=== PATIENT | female | born 1975 | race African-American/Black ===

== ENCOUNTER 2018-07-18 11:11 | Observation (INO) | payer BC ==
[2018-07-18 12:17] LABS: Hemoglobin 13.5 g/dL (12.0-16.0); Mean Corpuscular HGB CONC 33.7 g/dL (32.0-36.0); Mean Corpuscular Hemoglobin 31.3 pg (27.0-31.0); Platelet Count 132 thou/uL (130-400); RBC Distribution Width 11.8 % (11.5-14.5); Red Blood Cell (RBC) Count 4.31 mill/uL (4.20-5.40); White Blood Cell (WBC) Count 7.7 thou/uL (4.8-10.8)
[2018-07-18] MEDS ORDERED: Acetaminophen 500 MG TAB ONE (12:18)
[2018-07-18 12:27] LABS: #Basophils 0.1 thou/uL (0.0-0.2); #Eosinphils 0.2 thou/uL (0.0-0.7); #Monocytes 0.7 thou/uL (0.11-0.59); #Neutrophils 4.6 thou/uL (1.40-6.50); %Basophils 1.3 % (0.0-1.0); %Eosinophils 2.8 % (0.0-10.0); %Lymphocytes 26.2 % (21.0-51.0); %Monocytes 9.6 % (0.0-10.0); %Neutrophils 60.1 % (42.0-75.0); Large Platelets SLIGHT; MDiff Complete? YES; Platelet Morphology Comment Appears Adequate; RBC Morphology Normal
[2018-07-18 12:31] LABS: ALT (SGPT) 13 U/L (8-55); AST (SGOT) 19 U/L (5-34); Albumin 4.6 g/dL (3.5-5.0); Alkaline Phosphatase 73 U/L (40-150); Anion Gap 14 mmol/L (10-20); BUN (Urea Nitrogen) 12 mg/dL (7.0-18.7); Bilirubin, Total 0.9 mg/dL (0.2-1.2); Calc. Creatinine Clearance 0 mL/min (70-130); Calcium 10.2 mg/dL (7.8-10.44); Carbon Dioxide 24 mmol/L (22-29); Chloride 104 mmol/L (98-107); Estimated GFR-MDRD 77; Globulin 3.7 g/dL (2.4-3.5); Glucose 79 mg/dL (70-105); Lipase 20 U/L (8-78); Potassium 3.9 mmol/L (3.5-5.1); Protein, Total 8.3 g/dL (6.0-8.3); Sodium 138 mmol/L (136-145)
--- NOTE | 2018-07-18 12:39 | RAD ---
PORTABLE CHEST ONE VIEW: Date: 07-18-18 Time: 12:27 p.m. History: Chest pain FINDINGS: Comparison is made with exam of 11-20-17. The heart size is normal. The lungs are expanded without focal areas of consolidation, pneumothoraces or pleural effusions. IMPRESSION: No radiographic evidence of acute cardiopulmonary process. POS: [facility]
[2018-07-18] MEDS ORDERED: Nitroglycerin 2% Ointment 1 INCH/1 GM Packet ONE (13:06)
[2018-07-18] MEDS ORDERED: diphenhydrAMINE 50 MG/ML VIAL ONE (13:56)
[2018-07-18] MEDS ORDERED: Ondansetron PF 4 MG/2 ML Vial ONE (13:56)
[2018-07-18] MEDS ORDERED: Metoclopramide HCl 10 MG/2 ML VIAL ONE (13:56)
[2018-07-18 15:47] VITALS: BMI 26.2
--- NOTE | 2018-07-18 16:48 | PDOC.FPRHP ---
- History of Present Illness Chief Complaint: Chest pain History of Present Illness: 43 yo F with PMH SLE was transfer from [facility] [place] for chest pain rule out. She reports intermittent chest pain and "twinge" feeling on L side of chest. Episodes last a few seconds and have increased in frequency today. Radiates to L arm. Associated with N/V, chills. No numbness/tingling. No exacerbating factors. Alleviated by nitro. Movement doesn't affect pain. Has never had this pain before. Pain 6-7/10 at worst, no pain now. Has a mild headache that improved some with meds given in ED. Also reports lower abdominal pain/pressure x2 days associated with urinary frequency. No dysuria. Had chest pain 4 years ago with negative stress test. ED Course: Metoclopramide, benadryl, ondansetron, nitro, 1L, tylenol - Allergies/Adverse Reactions Allergies Allergy/AdvReac Type Severity Reaction Status Date / Time aspirin Allergy Verified 12/25/12 12:33 NSAIDS (Non-Steroidal Allergy Verified 07/18/18 15:52 Anti-Inflamma - Home Medications Medication Instructions Recorded Confirmed Type Nitrofurantoin Monohyd/M-Cryst 100 mg PO BID #10 cap 07/19/18 Rx [Macrobid] - History PMHx: SLE, asthma, migraines PSHx: hysterectomy 2010 FHx: CAD Social: No tobacco, alcohol, drug use - Review of Systems General: denies: fever/chills ENT: denies: nasal congestion Respiratory: denies: cough, shortness of breath Cardiovascular: reports: chest pain. denies: palpitation, edema Gastrointestinal: reports: nausea, vomiting, abdominal pain. denies: diarrhea Genitourinary: denies: incontinence, dysuria Skin: denies: rashes Musculoskeletal: denies: stiffness, swelling Neurological: denies: numbness, weakness - Vital signs BP: 137/85 HR: 101 RR: 24 Tmax: 99.1 Pox: 94% on RA Wt: 63 kg - Physical Exam Constitutional: NAD, awake, alert and oriented HEENT: normocephalic and atraumatic Chest: no-tender to palpation Heart: RRR, normal S1/S2, no murmurs/rubs/gallops, pulses present, no edema Lungs: CTAB, no respiratory distress, no rales/rhonchi, no wheezing Abdomen: soft, bowel sounds present, other (mid abdominal and suprapubic tenderness to palpation) Neurological: no focal deficit Skin: no rash/lesions, good turgor FMR H&P: Results - Labs Result Diagrams: 07/18/18 12:10 07/18/18 12:10 Lab results: WBC 7.7 thou/uL (4.8-10.8) 07/18/18 12:10 Hgb 13.5 g/dL (12.0-16.0) 07/18/18 12:10 Hct 40.1 % (36.0-47.0) 07/18/18 12:10 MCV 93.0 fL (78.0-98.0) 07/18/18 12:10 Plt Count 132 thou/uL (130-400) 07/18/18 12:10 Neutrophils % 60.1 % (42.0-75.0) 07/18/18 12:10 Sodium 138 mmol/L (136-145) 07/18/18 12:10 Potassium 3.9 mmol/L (3.5-5.1) 07/18/18 12:10 Chloride 104 mmol/L (98-107) 07/18/18 12:10 Carbon Dioxide 24 mmol/L (22-29) 07/18/18 12:10 BUN 12 mg/dL (7.0-18.7) 07/18/18 12:10 Creatinine 0.96 mg/dL (0.6-1.1) 07/18/18 12:10 Glucose 79 mg/dL (70-105) 07/18/18 12:10 Calcium 10.2 mg/dL (7.8-10.44) 07/18/18 12:10 Total Bilirubin 0.9 mg/dL (0.2-1.2) 07/18/18 12:10 AST 19 U/L (5-34) 07/18/18 12:10 ALT 13 U/L (8-55) 07/18/18 12:10 Alkaline Phosphatase 73 U/L (40-150) 07/18/18 12:10 Serum Total Protein 8.3 g/dL (6.0-8.3) 07/18/18 12:10 Albumin 4.6 g/dL (3.5-5.0) 07/18/18 12:10 Lipase 20 U/L (8-78) 07/18/18 12:10 FMR H&P: A/P - Problem List (1) Chest pain Current Visit: Yes Status: Acute Code(s): R07.9 - CHEST PAIN, UNSPECIFIED (2) Urinary frequency Current Visit: Yes Status: Acute Code(s): R35.0 - FREQUENCY OF MICTURITION (3) SLE (systemic lupus erythematosus related syndrome) Current Visit: Yes Status: Chronic Code(s): M32.9 - SYSTEMIC LUPUS ERYTHEMATOSUS, UNSPECIFIED - Plan ACS rule out for typical chest pain - Heart score 3 - pending TSH, lipids - 1st troponin negative, continue to trend - NPO @ midnight and plan for stress test in am Urinary frequency - UA not found in previous ED workup - pending UA and will treat as necessary SLE - not on any home meds as unable to tolerate plaquenil side effects Ppx: SCDs, yonas 0 Diet: HH, NPO @ midnight Dispo: admit to telemetry for observation FMR H&P: Upper Level - Pertinent history 43 yo F with Hx of SLE here with complaint of left sided chest pain with radiation to the L shoulder. Pain started yesterday and was intermittent in nature. Pain was not associated with activity. She did note associated SOB. She notes increasing frequency and severity of pain over the past 24 hours. Apprx 4 years ago she had similar pain with a negative stress. In the outside ED initial trop was negative and EKG shows q waves in inferior leads, however these are unchanged from previous EKG. Nitro paste was placed in ED with resolution of CP. Patient also complains of 1-2 days of lower abdominal pain with increased urinary frequency and associated n/v. ROS - see recruiting intern note for full ROS and PE General Denies fever chills CV complains of left sided CP that radiates to L arm Resp complains of SOB associated with CP GI complains of n/v complains of increased frequency and lower abdominal pain Neuro denies numbness, weakness, slurred speech, or LOC - Pertinent findings PE General A&O x3, no acute distress HEENT NCAT CV RRR, no murmur. Chest non TTP Resp CTA b/l GI Suprapubic tenderness, otherwise non tender, normal BS Extremities no edema Neuro normal strength and sensation - Plan Date/Time: 07/18/18 3856 I, Ceasar Funk DO, have evaluated this patient and agree with findings/plan as outlined by recruiting intern resident. Pertinent changes/additions are listed here. 1. Typical chest pain - initial trop negative, trend x3 - monitor on tele obs - Nitro prn - NPO at midnight, stress in am 2. SLE - at baseline. Pt is not on any meds 3. UTI, suspected - UA pending. If indicated will culture and treat with abx PPx SCD Diet HH, NPO at midnight Code Full Dispo: Pt is stable and doing well. Obs over night and likely dc in 1-2 days pending stress results. Addendum - Attending - Attending Attestation Date/Time: 07/19/18 0682 I personally evaluated the patient and discussed the management with Dr. Funk and Sina on day of admission. I agree with and repeated the History, Examination, Assessment and Plan documented above with any addition or exceptions noted below.
[2018-07-18] MEDS ORDERED: Nitroglycerin 0.4 MG TAB (25 Tab Bottle) PO PRN (16:52)
[2018-07-18] MEDS ORDERED: Ondansetron ODT 4 MG TAB PO PRN (16:52)
[2018-07-18 17:11] LABS: Troponin I Less than 0.010 ng/mL (< 0.028)
[2018-07-18] MEDS: Acetaminophen 325 MG TAB PO PRN (18:41)
[2018-07-18 19:21] LABS: Troponin I Less than 0.010 ng/mL (< 0.028)
[2018-07-18 21:16] LABS: Bilirubin Negative (Negative); Blood, Urine Trace (Negative); Clarity CLEAR (Clear); Glucose, Urine (Dipstick) Negative (Negative); Leukocyte Moderate (Negative); Nitrite Negative (Negative); Protein, Urine (Dipstick) Negative (Neg-Trace); Specific Gravity, Urine 1.018 (1.002-1.036)
[2018-07-18 21:17] LABS: Bacteria/HPF None Seen HPF (None Seen); Hyaline Casts/LPF 0-3 HYALINE CAST LPF (0-3 Hyaline); Squamous Epithelial 0-3 HPF (0-3)
[2018-07-18 21:18] LABS: Urine Culture Reflex Yes Yes
[2018-07-19 05:40] LABS: Cardiac Risk 3.5 (Less than 4.5)
--- NOTE | 2018-07-19 07:05 | PDOC.FM ---
- Subjective Subjective: Seen at bedside this morning resting comfortably. She continues to have periodic dull chest pain. Denies cough or SOB. No new symptoms. - Objective MAR Reviewed: Yes Vital Signs & Weight: Vital Signs (12 hours) Temp Pulse Resp BP Pulse Ox 07/19/18 03:33 99.1 F 64 17 97/56 L 98 07/18/18 19:45 98.7 F 82 16 91/54 L 96 Weight Weight 63.049 kg I&O: 07/18/18 07/19/18 07/20/18 06:59 06:59 06:59 Intake Total 780 Output Total 600 Balance 180 Result Diagrams: 07/18/18 12:10 07/18/18 12:10 Phys Exam - Physical Examination Constitutional: NAD HEENT: moist MMs Neck: no JVD Respiratory: clear to auscultation bilateral Cardiovascular: RRR, no significant murmur Gastrointestinal: soft, non-tender, no distention, positive bowel sounds Musculoskeletal: no edema Neurological: normal sensation, moves all 4 limbs Psychiatric: normal affect, A&O x 3 Skin: no rash Dx/Plan (1) UTI (urinary tract infection) Status: Acute (2) Chest pain Code(s): R07.9 - CHEST PAIN, UNSPECIFIED Status: Acute (3) SLE (systemic lupus erythematosus related syndrome) Code(s): M32.9 - SYSTEMIC LUPUS ERYTHEMATOSUS, UNSPECIFIED Status: Chronic - Plan Plan: 1. Typical chest pain - Plan for stress test this morning - Trops negative - TSH normal, Lipids WNL 2. UTI - Cultures pending - Start macrobid 3. SLE - no current meds, does not appear to be acute flair Dispo: stable patient, would expect patient to discharge today pending results of stress Addendum - Attending - Attending Attestation Date/Time: 07/19/18 2648 I personally evaluated the patient and discussed the management with Dr. Funk I agree with the History, Examination, Assessment and Plan documented above with any addition or exceptions noted below- Patient c/o SIMMONS but otherwise feeling well. Afebrile VSS. A/P: 1) Chest pain- negative cardiac enzymes; negative stress test. Plan to d/c home. Follow-up with PCP of choice in 2 weeks.
[2018-07-19] MEDS ORDERED: Nitrofurantoin Monohyd/M-Cryst 100 MG CAP PO SCH (09:00)
[2018-07-19] MEDS: Acetaminophen 325 MG TAB PO PRN (13:58)
--- NOTE | 2018-07-19 13:58 | NM ---
NUCLEAR MEDICINE CARDIAC STRESS WITH EF AND WALL MOTION: HISTORY: Asthma. Chest pain. COMPARISON: None. TECHNIQUE: The patient was administered 9.8 millicuries of technetium 99m sestamibi for rest imaging and 29.4 mi llicuries of technetium 99m sestamibi for stress imaging. Cardiac gating is performed. FINDINGS: Homogeneous distribution of radiotracer in the left ventricle. No reversibility or fixed defect. TID is 1.30. End-diastolic volume is 51 mL. End-systolic volume is 9 mL. CARDIAC GATING: Normal motion and thickening. Ejection fraction 82%. IMPRESSION: 1. No reversibility or fixed defect. 2. Ejection fraction 82%. 3. Findings suggesting possible transient ischemic dilatation. POS: [facility]
[2018-07-19 14:49] VITALS: TEMP 98.1
[2018-07-19 15:39] VITALS: BP 118/57
== END 2018-07-19 20:00 | disposition home or self-care (01) ==
LOC: SCSER 11:11 → SCSEROBS 12:58 → 2NO 16:12
PROVIDERS: ADMIT Emergency Medicine; ATTEND Emergency Medicine
DX: R07.89 Other chest pain (principal); M32.9 Systemic lupus erythematosus, unspecified; J45.909 Unspecified asthma, uncomplicated; N39.0 Urinary tract infection, site not specified; G43.909 Migraine, unspecified, not intractable, without status migrainosus; Z90.710 Acquired absence of both cervix and uterus; Z88.6 Allergy status to analgesic agent; Z79.2 Long term (current) use of antibiotics
CPT/HCPCS: 36415; 71045; 78452; 80053; 80061; 81001; 83690; 84443; 84484; 85025; 87086; 93017; 96361; 96365; 96375; A9500; G0378; J1200; J2405; J2765

== ENCOUNTER 2018-08-27 12:55 | Outpatient (CLI) | payer BC ==
--- NOTE | 2018-09-03 13:05 | MMO ---
Bilateral MAMMO Bilat Screen [facility]DI. CLINICAL HISTORY: Patient is 43 years old and is seen for screening. The patient has the following family history of breast cancer: cousin female, at age 30, premenopausal and cousin female, at age 33, premenopausal. The patient has no personal history of cancer. VIEWS: The views performed were: bilateral craniocaudal and bilateral mediolateral oblique. FILMS COMPARED: The present examination has been compared to a prior imaging study performed at [facility] on 12/10/2014. This study has been interpreted with the assistance of computer-aided detection. MAMMOGRAM FINDINGS: The breasts are heterogeneously dense, which could obscure a lesion on mammography. There are benign appearing calcifications seen in the left breast. There are no suspicious masses, suspicious calcifications, or new areas of architectural distortion. IMPRESSION: THERE IS NO MAMMOGRAPHIC EVIDENCE OF MALIGNANCY. A ROUTINE FOLLOW-UP MAMMOGRAM IN 1 YEAR IS RECOMMENDED. ACR BI-RADS Category 2 - Benign finding MAMMOGRAPHY NOTE: 1. A negative mammogram report should not delay a biopsy if a dominant of clinically suspicious mass is present. 2. Approximately 10% to 15% of breast cancers are not detected by mammography. 3. Adenosis and dense breasts may obscure an underlying neoplasm.
== END 2018-08-27 12:56 | disposition home or self-care (01) ==
LOC: SCSMAMMO 12:55
PROVIDERS: ATTEND Family Medicine
DX: Z12.31 Encounter for screening mammogram for malignant neoplasm of breast (principal); Z80.3 Family history of malignant neoplasm of breast
CPT/HCPCS: 77067

== ENCOUNTER 2019-07-28 07:52 | Outpatient (CLI) | payer BC ==
--- NOTE | 2019-07-28 10:23 | CT ---
CT OF THE ABDOMEN AND PELVIS WITH AND WITHOUT IV CONTRAST: INDICATION: History of microscopic hematuria and lupus nephritis. The patient is having mid abdominal pain and b loating for the past few weeks. COMPARISON: Prior CT of the abdomen and pelvis dated 10/10/2011. FINDINGS: No renal or ureteral calculus is evident. No hydronephrosis is demonstrated. No solid renal lesion is demonstrated. No gross urothelial lesion is evident within the segmentally opacified renal collecting system. Visualized partially opacified bladder appears within normal limits. There is very mild wall thicken ing likely related to under distention. There is calcified granuloma in the right middle lobe. The liver, pancreas, adrenal glands, and spleen appear within normal limits. There is a mild amount of retained stool within the colon. There is a normal appendix in the right l ower quadrant of the abdomen. The small bowel is of normal caliber. No free fluid or enlarged lymph nodes are evident. No acute osseous abnormality is demonstrated. IMPRESSION: 1. No focal renal lesion or hydronephrosis. No renal or ureteral calculus demonstrated. No gross u rothelial lesion identified. 2. Mild prominence of the bladder wall is likely related to underdistension. 3. Findings of prior granulomatous disease. 4. No additional acute abnormality. POS: [facility]
[2019-07-28 10:33] LABS: Bilirubin Negative (Negative); Blood, Urine Moderate (Negative); Clarity Clear (Clear); Glucose, Urine (Dipstick) Negative (Negative); Leukocyte Moderate (Negative); Nitrite Negative (Negative); Protein, Urine (Dipstick) Negative (Neg-Trace); Urobilinogen 0.2 mg/dL (Less than 2)
[2019-07-28 10:46] LABS: Bacteria/HPF 2+ HPF (None Seen)
[2019-07-28 11:00] LABS: Anion Gap 11 mmol/L (10-20); BUN (Urea Nitrogen) 11 mg/dL (7.0-18.7); Calc. Creatinine Clearance 0 mL/min (70-130); Carbon Dioxide 27 mmol/L (22-29); Chloride 104 mmol/L (98-107); Estimated GFR-MDRD 82; Glucose 83 mg/dL (70-105); Potassium 4.1 mmol/L (3.5-5.1); Sodium 138 mmol/L (136-145)
== END 2019-07-28 07:53 | disposition home or self-care (01) ==
LOC: SCSCT 07:52
PROVIDERS: ATTEND Urology
DX: M32.14 Glomerular disease in systemic lupus erythematosus (principal); R31.29 Other microscopic hematuria; R10.33 Periumbilical pain; Z87.440 Personal history of urinary (tract) infections
CPT/HCPCS: 36415; 74178; 80048; 81001; 87086

== ENCOUNTER 2019-08-01 08:50 | Outpatient (CLI) | payer BC ==
--- NOTE | 2019-08-01 10:53 | ULT ---
GALLBLADDER ULTRASOUND: HISTORY: Epigastric pain. FINDINGS: There is coarse echogenicity of the liver without focal mass or intrahepatic ductal dilatation. No g allstones, gallbladder wall thickening, or pericholecystic fluid is seen. The common duct measures 4 mm in diameter. The pancreas and right kidney appear normal. No free fluid is seen in the Morison' s pouch. IMPRESSION: 1. Findings are suggestive of hepatocellular disease. 2. No evidence of cholelithiasis. POS: [facility]
== END 2019-08-01 08:51 | disposition home or self-care (01) ==
LOC: SCSULT 08:50
PROVIDERS: ATTEND Physician Assistant Medical
DX: R10.13 Epigastric pain (principal)
CPT/HCPCS: 76705

== ENCOUNTER 2021-04-21 13:02 | Outpatient (CLI) | payer BC | END 2021-04-21 13:03 | disposition home or self-care (01) | LOC: DTY/OP 13:02 | PROVIDERS: ATTEND Family Medicine | DX: R73.03 Prediabetes (principal) | CPT/HCPCS: 97802 ==

== ENCOUNTER 2023-03-22 09:43 | Outpatient (CLI) | payer BC | END 2023-03-22 09:44 | disposition home or self-care (01) | LOC: SCSRAD 09:43 | PROVIDERS: ATTEND Orthopaedic Surgery Orthopaedic Surgery of the Spine | DX: M47.22 Other spondylosis with radiculopathy, cervical region (principal); M79.602 Pain in left arm; Z98.890 Other specified postprocedural states | CPT/HCPCS: 72040 ==

== ENCOUNTER 2023-04-18 10:38 | Outpatient (CLI) | payer BC | END 2023-04-18 10:39 | disposition home or self-care (01) | LOC: SCSRAD 10:38 | PROVIDERS: ATTEND Orthopaedic Surgery Orthopaedic Surgery of the Spine | DX: M54.12 Radiculopathy, cervical region (principal); M79.602 Pain in left arm | CPT/HCPCS: 72050 ==

== ENCOUNTER 2023-05-30 13:18 | Outpatient (CLI) | payer BC | END 2023-05-30 13:19 | disposition home or self-care (01) | LOC: SCSRAD 13:18 | PROVIDERS: ATTEND Orthopaedic Surgery Orthopaedic Surgery of the Spine | DX: M47.22 Other spondylosis with radiculopathy, cervical region (principal); M50.123 Cervical disc disorder at C6-C7 level with radiculopathy; Z98.890 Other specified postprocedural states | CPT/HCPCS: 72050 ==